=== PATIENT | female | born 1995 ===

== ENCOUNTER 2016-06-01 23:19 | Inpatient (IN) | payer OTHER ==
[~2016-06-01] VITALS: Ht 165.1 cm; Wt 83.6 kg
[2016-06-02] VITALS (14 sets, daily range): BP systolic 149–188; BP diastolic 89–104; PULSE 56–78; TEMP 98.6
[2016-06-02 21:49] LABS: BASO % 0.1 % (0.0-2.0); EOS % 0.3 % (0-4.0); GRAN # 5.6 (1.4-6.5); GRAN % 60.5 % (42.2-75.2); LYMPH % 32.5 % (20.0-51.0); MEAN CELL VOLUME 87 fl (80.0-100.0); MEAN CORPUSCULAR HEMOGLOBIN 29 pg (27.0-31.0); MEAN CORPUSCULAR HGB CONC 34 g/dl (33.0-37.0); MEAN PLATELET VOLUME 12.7 fl (7.4-10.4); MONO # 0.6 (0.1-0.6); MONO % 6.1 % (1.7-9.3); PLATELET COUNT 152 K/mm3 (130-400); RED BLOOD COUNT 4.08 M/mm3 (4.10-5.30); REDCELL DISTRIBUTION WIDTH-CV 14.2 % (11.5-14.5); WHITE BLOOD COUNT 9.3 K/mm3 (4.8-10.8)
[2016-06-02 21:57] LABS: HEMATOCRIT 35.3 % (37.0-47.0)
[2016-06-02 22:17] LABS: PH 6 (5-8); SQUAMOUS EPITHELIAL 0-2 /hpf; URINE APPEARANCE Clear; URINE BACTERIA Rare /hpf; URINE BILIRUBIN Negative (NEGATIVE); URINE BLOOD Negative (NEGATIVE); URINE COLOR Yellow; URINE GLUCOSE Negative (NEGATIVE); URINE KETONE Negative (NEGATIVE); URINE RBC 0-2 /hpf; URINE UROBILINOGEN Negative (NEGATIVE)
[2016-06-02 22:29] LABS: ADJUSTED CALCIUM 9.6 mg/dL (8.4-10.2); ALBUMIN 3.6 gm/dL (3.5-5.0); BILIRUBIN,TOTAL 0.5 mg/dL (0.0-1.0); CALCIUM 9.3 mg/dL (8.4-10.2); CREATININE, serum 0.8 mg/dL (0.52-1.25); POTASSIUM 3.7 mmol/L (3.4-5.0); TOTAL PROTEIN 7.6 gm/dL (6.4-8.2)
[2016-06-03] VITALS (40 sets, daily range): BP systolic 101–181; BP diastolic 57–114; PULSE 57–86; TEMP 97.7–99.5
[2016-06-03 06:59] LABS: BASO % 0.2 % (0.0-2.0); EOS % 0.2 % (0-4.0); GRAN # 5.7 (1.4-6.5); GRAN % 64.5 % (42.2-75.2); LYMPH # 2.6 (1.2-3.4); LYMPH % 28.6 % (20.0-51.0); MEAN CELL VOLUME 87 fl (80.0-100.0); MEAN CORPUSCULAR HGB CONC 33 g/dl (33.0-37.0); MEAN PLATELET VOLUME 12.1 fl (7.4-10.4); MONO # 0.5 (0.1-0.6); MONO % 5.7 % (1.7-9.3); PLATELET COUNT 146 K/mm3 (130-400); RED BLOOD COUNT 4.08 M/mm3 (4.10-5.30); REDCELL DISTRIBUTION WIDTH-CV 14.3 % (11.5-14.5); WHITE BLOOD COUNT 8.9 K/mm3 (4.8-10.8)
[2016-06-03 07:24] LABS: ADJUSTED CALCIUM 9.7 mg/dL (8.4-10.2); ALBUMIN 3.5 gm/dL (3.5-5.0); BILIRUBIN,TOTAL 0.5 mg/dL (0.0-1.0); CALCIUM 9.3 mg/dL (8.4-10.2); CREATININE, serum 0.88 mg/dL (0.52-1.25); HEMATOCRIT 35.6 % (37.0-47.0); HEMOGLOBIN 11.9 g/dl (12.5-16.0); MEAN CORPUSCULAR HEMOGLOBIN 29 pg (27.0-31.0); POTASSIUM 3.7 mmol/L (3.4-5.0); TOTAL PROTEIN 7.2 gm/dL (6.4-8.2)
[2016-06-03] MEDS ORDERED: PERCOCET 325 MG1 TA2 PO (08:15)
[2016-06-03] MEDS ORDERED: MOTRIN 800800 MG/TAB PO (08:15)
[2016-06-04] VITALS: BP 130/88; PULSE 70; TEMP 98.2
[2016-06-04 04:00] VITALS: BP 126/81; PULSE 77; TEMP 97.5
[2016-06-04 09:57] VITALS: BP 126/88; PULSE 71; TEMP 98
[2016-06-04 16:47] VITALS: BP 130/85; PULSE 74; TEMP 98.5
[2016-06-04 21:00] VITALS: BP 128/80; PULSE 80; TEMP 99.6
[2016-06-05 08:07] VITALS: BP 128/65; PULSE 72; TEMP 97.8
== END 2016-06-05 14:20 | disposition home or self-care (01) | DRG 775 ==
LOC: OB 23:19 → LDR 06-02 19:00 → OB 06-03 14:15
PROVIDERS: Obstetrics & Gynecology
PROC: 10E0XZZ Delivery of Products of Conception, External Approach (ICD-10-PCS; principal; 2016-06-03)
PROC: 0KQM0ZZ Repair Perineum Muscle, Open Approach (ICD-10-PCS; 2016-06-03)
PROC: 3E033VJ Introduction of Other Hormone into Peripheral Vein, Percutaneous Approach (ICD-10-PCS; 2016-06-03)
PROC: 0HQ9XZZ Repair Perineum Skin, External Approach (ICD-10-PCS; 2016-06-03)
DX: O36.5930 Maternal care for other known or suspected poor fetal growth, third trimester, not applicable or unspecified (principal); O13.3 Gestational [pregnancy-induced] hypertension without significant proteinuria, third trimester; O77.0 Labor and delivery complicated by meconium in amniotic fluid; O70.1 Second degree perineal laceration during delivery; O70.0 First degree perineal laceration during delivery; Z3A.39 39 weeks gestation of pregnancy; Z37.0 Single live birth
CPT/HCPCS: J2400; J2590; J7120